=== PATIENT | male | born 1955 | race Caucasian/White ===

== ENCOUNTER 2021-10-07 07:57 | Outpatient (CLI) | payer OTHER, SELFPAY ==
--- NOTE | 2021-10-07 08:45 | FL_ITS ---
WS: [id number] ESOPHAGRAM TECHNIQUE: Double contrast examination was performed with thin and thick barium. Upright and HERNANDEZ imag es were obtained. CLINICAL INFORMATION: R13.10 - Dysphagia, unspecified COMPARISON: None. FINDINGS: Swallowing: Normal oropharyngeal phase. No evidence of aspiration/penetration. Incidental lateral pha ryngeal pouches. Esophagus: Mild to moderate esophageal dysmotility with tertiary contractions. Somewhat delayed empty ing on the upright and supine imaging. Small esophageal hiatal hernia. Gastroesophageal reflux: Moderate reflux to the upper thoracic esophagus. Briefly delayed transit of the barium tablet in the midesophagus which cleared with additional liquid Fluoroscopy time: 3min [id number] # of spot films: 13 FL/FL barium swallow 82806 IMPRESSION: 1. No evidence of high-grade stricture or obstructing mass. 2. Mild/moderate esophageal dysmotility with tertiary contractions and somewha t delayed emptying. 3. Small esophageal hiatal hernia. 4. Moderate active reflux to the upper thoracic esophagus
== END 2021-10-07 07:58 | disposition home or self-care (01) ==
LOC: RAD 07:58
PROVIDERS: Visit Provider Surgery
DX: R13.10 Dysphagia, unspecified (principal); K44.9 Diaphragmatic hernia without obstruction or gangrene; K21.9 Gastro-esophageal reflux disease without esophagitis
CPT/HCPCS: 74220

== ENCOUNTER → 2021-10-15 14:56 | Outpatient (BNVA) | payer OTHER, SELFPAY | PROVIDERS: PCP Family Medicine; Referring Provider Family Medicine; Visit Provider Orthopaedic Surgery | DX: S89.92XA Unspecified injury of left lower leg, initial encounter (principal); W19.XXXA Unspecified fall, initial encounter; Y92.512 Supermarket, store or market as the place of occurrence of the external cause; M25.562 Pain in left knee; F17.210 Nicotine dependence, cigarettes, uncomplicated | CPT/HCPCS: 73560; 73565; 99203 ==

== ENCOUNTER 2021-10-24 10:33 | Day surgery (SDC) | payer OTHER, SELFPAY ==
[2021-10-23 09:54] VITALS: BMI 29.0
[2021-10-24] VITALS (8 sets, daily range): BP systolic 142–159; BP diastolic 75–107; PULSE 55–78; RESP 14–22; TEMP 36.4–36.6; O2SAT 92–100; BMI 29.0
[2021-10-24] MEDS: sodium chloride 0.9% 1,000 ML 30 ML IV (11:13)
--- NOTE | 2021-10-24 11:44 | ANES.PREANE2 ---
Pre-Anesthetic Assessment Height/Weight: Height 1.68 m Weight 81.647 kg Temp Pulse BP Pulse Ox 97.7 F 66 159/107 96 10/24/21 10:43 10/24/21 10:43 10/24/21 10:43 10/24/21 10:43 Preop Diagnosis: Right medial meniscal tear Operation Date: 10/24/21 12:50 Proposed Procedures p right knee arthroscopy 07776/medial meniscus tear right knee S83.249A(Right) - Malachi Walsh MD Familial anesthetic complications: Has woke agitated in the past Was Beta Ness taken within 24 hours: N/A Was Clonidine taken within 24 hours: N/A Last intake: Intake Last Liquid Date 10/23/21 Last Liquid Time 22:30 Last Solid Date 10/23/21 Last Solid Time 22:30 Social Tobacco and No alcohol Exam alert, oriented x 3, clear to auscultation bilaterally and regular rate & rhythm Airway Submandibular: within normal limits Cervical ROM: within normal limits Mallampati: Class III Dentition: chipped History/ROS No significant complaints Pulmonary Chronic Obstructive Pulmonary Disease CV/HEM None reported METS = 4 None reported Hepatic None reported GI None reported Had GERD in the past, no longer has symptoms Metabolic None reported Musc/skel Osteoarthritis/DJD Neuropsych None reported Anesthetic Plan ASA status: 3 (66 year old male smoker with COPD and reduced functional capacity) Anesthesia: Anesthesia Evaluation and General Other: We discussed risk and benefits of general anesthesia including PONV, sore throat (sometimes severe), corneal abrasion, positioning and peripheral nerve injuries, life threatening allergic reaction, post operative ICU admission requiring prolonged intubation, stroke, heart attack, , and rare incidences of recall. Patient consents to proceed with general anesthesia. Risk of > 500 ml blood loss (7ml/kg in children): No Medications/Allergies Home Medications Medication Instructions Recorded Confirmed Last Taken Type ropinirole 3 mg tablet 3 mg PO PRN PRN 07/29/21 10/23/21 10/23/21 History trazodone 50 mg tablet 25 mg PO DAILY 07/29/21 10/23/21 10/23/21 History albuterol 90 mcg/actuation aerosol 90 mcg INHALATION PRN PRN 10/23/21 10/23/21 10/23/21 History inhaler Allergies Allergy/AdvReac Type Severity Reaction Status Date / Time No Known Allergies Allergy Verified 10/15/21 15:02 Current Medications Generic Name Dose Route Start Last Admin Trade Name Rikki PRN Reason Stop Dose Admin Sodium Chloride 1,000 mls @ 30 mls/hr 10/24/21 10:45 10/24/21 11:13 Sodium Chloride 0.9% IV 10/25/21 10:44 30 mls/hr .Q24H BECKIE Administration PFSH Anesthesia Family History Other Cancer Denies family history of Diabetes CAD (coronary artery disease) Dementia Chronic kidney disease (CKD) Stroke Social History Smoking and tobacco status: current every day smoker Alcohol intake: current Alcohol intake frequency: 3 or more drinks per day Lives independently: Yes Household members: spouse Data Anesthesia Cardiac Studies: No Data to Display
--- NOTE | 2021-10-24 12:22 | W.PM.OPSUD ---
Surgery/Procedure H&P Update DATE OF PROCEDURE: October 24, 2021 DATE H&P PERFORMED: 10/15/21 PREOP DIAGNOSIS: Right medial meniscal tear PLANNED PROCEDURE: Operation Date: 10/24/21 12:50 Proposed Procedures p right knee arthroscopy 06516/medial meniscus tear right knee S83.249A(Right) - Malachi Walsh MD
[2021-10-24] MEDS: morphine 4 mg/mL SDV 1 mL 8 MG XX (13:09)
--- NOTE | 2021-10-24 13:26 | PM.OP ---
Operative Report Date of procedure: October 24, 2021 Pre-op diagnosis: Preop Diagnosis Left medial meniscal tear Post-op diagnosis: Same Procedure done: Arthroscopic left partial medial meniscectomy Pathology: none sent Surgeon: Malachi Walsh Estimated blood loss (mL): 5 Complications: None Findings: The patient had a complex tear involving the central 70% of his posterior third of the medial meniscus Condition: stable Disposition: PACU Procedure: The patient was taken to the operating room and given a general anesthesia. He was prepped and draped in the supine position with a tourniquet on the left thigh. The tourniquet was never inflated. The knee was infiltrated with 30 cc of of Marcaine and 8 mg of morphine. A timeout was performed. The knee was entered through standard inferior medial and inferolateral portals. The diagnostic portion of arthroscopy was performed. The complex tearing of the medial meniscus was identified. Utilizing an incisor shaver and Calix and Nephew Werewolf probe unstable flaps of meniscus were removed bring this back to a stable rim of approximately 30% of the medial meniscus remaining. No significant chondromalacia was identified over the medial femoral condyle or tibia. The lateral compartment was inspected and found to be chondral abnormalities meniscal tearing with healthy chondral surfaces. The patellofemoral compartment was inspected and found to be healthy and free of chondral abnormalities. The knee was irrigated with saline. Portals were closed with 3-0 Prolene. Sterile dressings were applied. The patient was extubated and taken to recovery in stable condition.
[2021-10-24] MEDS: fentaNYL 50 mcg/mL INJ 2mL IVP (13:40)
--- NOTE | 2021-10-24 13:46 | SUR.PHASEI ---
1326 PT TO PACU 5 PT AWAKE ALERT COUGHING NON STOP, HOB AT 40 DEGREES PT WITH STRONG RESP EFFORT, IV TO LT AC #20 WITH NS AT KVO RATE PER GRAVITY 200ML UP. LT KNEE DRESSING D/I DISTAL FOOT PINK WARM WITH STRONG REGULAR PULSE NOTED AT +3, REGULAR ICE PACK TO KNEE, PT ID BRACELET TO LRT WRIST , PT ID'D WITH 2 IDENTIFIERS, MONITOR SR TO SB.
[2021-10-24] MEDS: HYDROcodone-acetaminophen 5-325 mg Tablet 1 TAB PO (14:34)
--- NOTE | 2021-10-24 14:46 | ANE.PACU2 ---
Inpatient post-anesthesia follow up: Airway intact: Yes Vital signs: Temperature 97.8 F Pulse Rate 55 Respiratory Rate 17 Blood Pressure 152/83 Pulse Oximetry 92 Oxygen Delivery Me thod Room Air Oxygen Flow Rate 8 Fraction of Inspir ed Oxygen Hydration adequate: Yes Nausea and vomiting: No Pain level: 4 Mental status: Baseline
== END 2021-10-24 15:00 | disposition home or self-care (01) ==
PROVIDERS: PCP Family Medicine; Visit Provider Orthopaedic Surgery
PROC: (CPT 29870; principal; 2021-10-24 12:50)
DX: S83.242A Other tear of medial meniscus, current injury, left knee, initial encounter (principal); X50.1XXA Overexertion from prolonged static or awkward postures, initial encounter; J44.9 Chronic obstructive pulmonary disease, unspecified; F17.210 Nicotine dependence, cigarettes, uncomplicated
CPT/HCPCS: 29881; J0330; J0690; J2270; J2405; J2704; J2710; J3010; J3490; J7030

== ENCOUNTER 2021-11-14 06:42 | Day surgery (SDC) | payer OTHER, SELFPAY ==
[2021-11-11 12:47] VITALS: BMI 29.0
[2021-11-14 07:02] VITALS: BP 130/80; PULSE 52; RESP 18; TEMP 36.1; O2SAT 98
[2021-11-14] MEDS: sodium chloride 0.9% 1,000 ML 30 ML IV (07:16)
--- NOTE | 2021-11-14 07:23 | P.ANESUD_ITS ---
Pre-Anesthetic Update Pre-Anesthetic Assessment: Date of Surgery/Procedure: 11/14/21 Preop Chandni gnosis: Dysphagia Proposed Procedure: Operation Date: 11/14/21 08:30 Proposed Procedures p EGD Dilation w/baloon 30204/R13.1 dysphagia(Not Applicable) - Aston Roper MD Changes from Pre-Anesthetic Assessment: no changes per patient Last Intake: Intake Last Liquid Date 11/13/21 Last Liquid Time 20:30 Last Solid Date 11/13/21 Last Solid Time 20:30 Vitals: Temperature 97 F L 11/14/21 07:02 Temperature Source Temporal Artery S can 11/14/21 07:02 Pulse Rate 52 L 11/14/21 07:02 Respiratory Rate 18 11/14/21 07:02 Blood Pressure 130/80 11/14/21 07:02 Blood Pressure Corrie n 96 11/14/21 07:02 Pulse Oximetry 98 11/14/21 07:02 Oxygen Delivery Me thod 11/14/21 07:02 Other Pertinent Information: Other Pertinent Information: ASA 3 planned for MAC Cardiac Studies: No Data to Display
--- NOTE | 2021-11-14 07:29 | W.PM.OPSFHP ---
Same Day Surgery H&P Indication for Procedure/HPI DATE OF PROCEDURE: November 14, 2021 CHIEF COMPLAINT/INDICATIONFOR SURGICAL PROCEDURE: Difficulty in swallowing PREOP DIAGNOSIS: Dysphagia PLANNED PROCEDURE: Operation Date: 11/14/21 08:30 Proposed Procedures p EGD Dilation w/fly 46707/R13.1 dysphagia(Not Applicable) - Aston Roper MD 07/29/2021 This is a pleasant 65 years old gentleman comes with history of recurrent episodes of choking and difficulty in swallowing.? Patient reports that he has esophageal stretch before in [facility] about 4 to 5 months ago and he had dilation before about 4 times.? And patient reports that his difficulty in swallowing for anything .? Unfortunately there is no available procedure note for the previous dilation.? And no evidence of previous swallow studies.? No evidence of weight loss.? No hematemesis or hemoptysis. As a side note patient reports that he had history of complicated diverticulitis ended up by Trejo's procedure and a colostomy then it was reversed later on via a laparotomy.? Many years ago. Current symptoms: Denies odynophagia 11/14/2021 Patient comes today for diagnostic EGD with possible balloon dilation. Barium swallow was done 10/08/2021 and showed ? 1.? No evidence of high-grade stricture or obstructing mass. 2.? Mild/moderate esophageal dysmotility with tertiary contractions and somewhat delayed emptying. 3.? Small esophageal hiatal hernia. 4.? Moderate active reflux to the upper thoracic esophagus ? ROS All systems have been reviewed negative except as for the above or per problem list. Medications/Allergies* Home Medications Medication Instructions Recorded Confirmed Type ropinirole 3 mg tablet 3 mg PO DAILY 07/29/21 11/14/21 History trazodone 50 mg tablet 25 mg PO DAILY 07/29/21 11/11/21 History albuterol 90 mcg/actuation aerosol 90 mcg INHALATION PRN PRN 10/23/21 11/11/21 History inhaler hydrocodone 5 mg-acetaminophen 325 1 tab PO Q4H PRN 11/14/21 11/14/21 History mg tablet Allergies/Adverse Reactions Allergy/AdvReac Type Severity Reaction Status Date / Time No Known Allergies Allergy Verified 11/11/21 12:46 Current Medications: Generic Name Dose Route Start Last Admin Trade Name Freq PRN Reason Stop Dose Admin Sodium Chloride 1,000 mls @ 30 mls/hr 11/14/21 07:00 11/14/21 07:16 Sodium Chloride 0.9% IV 11/15/21 06:59 30 mls/hr .Q24H BECKIE Administration Pertinent History/Comorbid Conditions* Family History (Updated 07/29/21 @ 11:22 by Chasity Cid) Cancer Denies family history of Diabetes CAD (coronary artery disease) Dementia Chronic kidney disease (CKD) Stroke Social History Smoking and tobacco status: current every day smoker Alcohol intake: current Alcohol intake frequency: 3 or more drinks per day Lives independently: Yes Household members: spouse Pertinent Exam Findings alert, oriented x 3, regular rate & rhythm and procedure specific exam findings (Abdominal examination nontender nondistended soft) Recommendations Surgery/Procedure today (EGD with possible biopsy and possible ballon dilation ) Coding Level of Care Code Acute Customer Service Manager for [facility]
[2021-11-14 08:25] VITALS: BP 103/55; PULSE 56; RESP 16; TEMP 36.4; O2SAT 93
[2021-11-14 08:50] VITALS: BP 131/79; PULSE 53; RESP 18; O2SAT 95
--- NOTE | 2021-11-14 13:42 | ANE.PACU2 ---
Inpatient post-anesthesia follow up: Airway intact: Yes Vital signs: Temperature 97.5 F Pulse Rate 53 Respiratory Rate 18 Blood Pressure 131/79 Pulse Oximetry 95 Oxygen Delivery Me thod Room Air Oxygen Flow Rate Fraction of Inspir ed Oxygen Hydration adequate: Yes Nausea and vomiting: No Pain level: 1 Mental status: Baseline
== END 2021-11-14 09:02 | disposition home or self-care (01) ==
PROVIDERS: PCP Family Medicine; Visit Provider Surgery
DX: R13.10 Dysphagia, unspecified (principal); F17.210 Nicotine dependence, cigarettes, uncomplicated; K31.7 Polyp of stomach and duodenum; K44.9 Diaphragmatic hernia without obstruction or gangrene; K29.70 Gastritis, unspecified, without bleeding
CPT/HCPCS: 43239; 88305; J2704; J7030

== ENCOUNTER 2023-10-19 16:58 | Emergency (ER) | payer OTHER, SELFPAY ==
[2023-10-19 17:02] VITALS: BP 127/80; PULSE 64; RESP 17; TEMP 37; O2SAT 97; BMI 27.9
--- NOTE | 2023-10-19 17:07 | ECG_ITS ---
[facility] Test Date: 2023-10-19 Pat Name: Krish Patel Department: Room: Gender: Male Accounts Payable Representative: : 1955 Requested By: Therese Dowell Order Number: [id number] Petra MD: Shannon Teague M.D. Measurements Intervals [place] Rate: 54 P: 45 NE: 252 QRS: -61 QRSD: 134 T: 24 QT: 448 QTc: 428 Interpretive Statements SINUS BRADYCARDIA WITH FIRST DEGREE AV BLOCK RIGHT BUNDLE BRANCH BLOCK [120+ ms QRS DURATION, UPRIGHT V1, 40+ ms S IN I/aVL/V4/V5/V6] LEFT ANTERIOR FASCICULAR BLOCK [QRS AXIS <= -45, QR IN I, RS IN II] VOLTAGE CRITERIA FOR LVH [MEETS CRITERIA IN ONE OF: R(aVL), S(V1), R(V5), R(V5/V6)+S(V1)] POSSIBLE SEPTAL MYOCARDIAL INFARCTION , OF INDETERMINATE AGE [30 ms Q WAVE IN V1/V2] No previous ECG available for comparison Electronically Signed On 10-20-2023 21:38:37 CDT by Shannon Teague M.D. [email or web address]
--- NOTE | 2023-10-19 17:09 | XRR_ITS ---
PROCEDURE INFORMATION: Exam: XR Chest Exam date and time: 10/19/2023 5:16 PM Age: 68 years old Clinical indication: Pain; Chest pressure; Additional info: Chest pain TECHNIQUE: Imaging protocol: Radiologic exam of the chest. Views: 1 view. COMPARISON: ES surgery / GI images 10/24/2021 12:56 PM FINDINGS: Lungs: Unremarkable. No consolidation. Pleural spaces: Unremarkable. No pleural effusion. No pneumothorax. Heart/Mediastinum: Unremarkable. No cardiomegaly. Bones/joints: Unremarkable. XR/XR chest 1V portable [id number] IMPRESSION: No acute cardiopulmonary findings.
--- NOTE | 2023-10-19 17:10 | W.ED.CHESTPA ---
HPI - Chest Pain General: Chief Complaint: Chest Pain Stated Complaint: Chest Pain Time Seen by Provider: 10/19/23 17:05 History of Present Illness: 68-year-old man with a history of chronic medical marijuana use, COPD, chronic pain syndrome, history of stroke with no residual effects who presents to the emergency room by ambulance with 2 days of right chest pain and pain going down to his right arm and right jaw. He describes a tightness in his chest. He says he has not had any coronary artery disease. It appears his only blood thinner is a baby aspirin daily. He has had a mild worsening cough. Perhaps some mild worsening of shortness of breath.of no altered mental status. No focal motor deficits. No abdominal pain. No nausea or vomiting. Review of Systems Narrative: Constitutional symptoms: Negative except as documented in HPI. Skin symptoms: Negative except as documented in HPI. Eye symptoms: Negative except as documented in HPI. ENMT symptoms: Negative except as documented in HPI. Respiratory symptoms: Negative except as documented in HPI. Cardiovascular symptoms: Negative except as documented in HPI. Gastrointestinal symptoms: Negative except as documented in HPI. Genitourinary symptoms: Negative except as documented in HPI. Musculoskeletal symptoms: Negative except as documented in HPI. Neurologic symptoms: Negative except as documented in HPI. Psychiatric symptoms: Negative except as documented in HPI. Endocrine symptoms: Negative except as documented in HPI. PFSH ED PFSH: Family History Other Cancer Denies family history of Diabetes CAD (coronary artery disease) Dementia Chronic kidney disease (CKD) Stroke Social History Smoking and tobacco/nicotine status: current every day tobacco/nicotine user Alcohol intake: current Alcohol intake frequency: 3 or more drinks per day Substance/Drug Use: current Substance/Drug use frequency: daily Lives independently: Yes Household members: spouse Physical Exam Narrative: EXAM NARRATIVE: General: Alert, no acute distress. Skin: Warm, dry. Head: Normocephalic, atraumatic. Neck: Supple, trachea midline. Eye: Extraocular movements are intact. Ears, nose, mouth and throat: mucosa moist. Cardiovascular: Regular, Normal peripheral perfusion. Respiratory: Lungs are clear to auscultation, respirations are non-labored, breath sounds are equal, Symmetrical chest wall expansion. Gastrointestinal: Soft, Nontender, Non distended, Normal bowel sounds. Musculoskeletal: Normal ROM, no deformity. Neurological: Alert and oriented, No focal neurological deficit observed. Psychiatric: Cooperative, appropriate mood & affect. Course Vital Signs: Vital signs: Vital Signs Temperature 98.6 F 10/19/23 17:02 Pulse Rate 69 10/19/23 18:19 Respiratory Rate 17 10/19/23 17:02 Blood Pressure 126/68 10/19/23 18:19 Pulse Oximetry 96 10/19/23 18:19 Oxygen Delivery Me thod Room Air 10/19/23 18:19 MDM - Chest Pain Medical Decision Making Differential diagnosis for patient with chest pain includes but is not limited to and based on the above HPI, review of systems and physical exam: Pneumonia. unstable angina. angina. Acute coronary syndrome / NV. Pulmonary embolism. Costochondritis / musculoskeletal. Pleurisy. Pericarditis. Esophageal spasm. Pancreatis. Cholecystitis. Workup: Lab work, chest X-ray and EKG ordered to evaluate, rule in and rule out above pathologies. Lab work is unremarkable. No leukocytosis. No anemia. BUN and creatinine are 22 and 0.9. Troponin is negative. Symptoms have been present for couple of days I do not feel a delta is necessary. Plus his pain is on the right side not typical for cardiac. Lab Review: Laboratory results were reviewed and interpreted by myself the emergency room physician. EKG: Sinus bradycardia, Q waves in V1 and V2. Right bundle branch block. Left anterior fascicular block. This was reviewed and interpreted by myself the ER physician. No previous EKG for comparison Chest x-ray: No acute process. No infiltrate. No pneumothorax. No cardiomegaly. This was reviewed and interpreted by myself the ER physician. I reviewed the patient's medical record. Reexamination: Patient is in no distress. No increased work of breathing. No altered mental status. No focal motor deficits. Lab Data 10/19/23 17:16 10/19/23 17:16 Radiology Impressions Chest X-Ray 10/19/23 17:09 IMPRESSION: No acute cardiopulmonary findings. Laboratory Results WBC 10.20 10^3/uL (3.29-11.43) 10/19/23 17:16 RBC 4.52 10^6/uL (3.85-5.65) 10/19/23 17:16 Hgb 13.50 g/dL (11.27-16.99) 10/19/23 17:16 Hct 42.4 % (37-53) 10/19/23 17:16 MCV 93.8 fl (82-101) 10/19/23 17:16 MCH 29.9 pg (27-33) 10/19/23 17:16 MCHC 31.8 g/dL (30-55) 10/19/23 17:16 RDW 14.4 % (12.1-15.1) 10/19/23 17:16 Plt Count 174 10^3/cmm (157-399) 10/19/23 17:16 MPV 9.8 fL (7.4-10.4) 10/19/23 17:16 Neut % (Auto) 62.9 % 10/19/23 17:16 Lymph % (Auto) 26.9 % 10/19/23 17:16 [place] % (Auto) 6.1 % 10/19/23 17:16 Eos % (Auto) 3.4 % 10/19/23 17:16 Baso % (Auto) 0.4 % 10/19/23 17:16 Neut # (Auto) 6.42 10^3/uL (1.8-7.7) 10/19/23 17:16 Lymph # (Auto) 2.7 10^3/uL (0.8-4.8) 10/19/23 17:16 [place] # (Auto) 0.6 10^3/uL (0.2-0.9) 10/19/23 17:16 Eos # (Auto) 0.4 10^3/uL (0.0-0.8) 10/19/23 17:16 Baso # (Auto) 0.0 10^3/uL (0.0-0.1) 10/19/23 17:16 Nucleated RBC % (auto) 0 % 10/19/23 17:16 Nucleated RBCs # 0.0 /100WBC 10/19/23 17:16 Sodium 140 mmol/L (136-145) 10/19/23 17:16 Potassium 4.5 mmol/L (3.5-5.1) 10/19/23 17:16 Chloride 105 mmol/L (98-107) 10/19/23 17:16 Carbon Dioxide 29 mmol/L (22-29) 10/19/23 17:16 Anion Gap 10.5 (5-19) 10/19/23 17:16 BUN 22 mg/dL (8-23) 10/19/23 17:16 Creatinine 0.9 mg/dL (0.7-1.2) 10/19/23 17:16 GFR Calculation 83.9 mL/min (90-130) L 10/19/23 17:16 Glucose 88 mg/dL (65-115) 10/19/23 17:16 Calculated Osmolality 293 mOsm/kg (285-295) 10/19/23 17:16 Calcium 9.1 mg/dL (8.5-10.5) 10/19/23 17:16 Total Bilirubin 0.3 mg/dL (0.15-1.2) 10/19/23 17:16 AST 17 U/L (0-40) 10/19/23 17:16 ALT 23 U/L (0-41) 10/19/23 17:16 Alkaline Phosphatase 71 U/L (40-130) 10/19/23 17:16 Troponin T Baseline 8 ng/L (0-15) 10/19/23 17:16 C-Reactive Protein 3.8 mg/L (0.0-4.9) 10/19/23 17:16 Total Protein 6.0 g/dL (6.6-8.7) L 10/19/23 17:16 Albumin 4.2 g/dL (3.5-5.2) 10/19/23 17:16 Globulin 1.8 g/dL (1.3-4.6) 10/19/23 17:16 Influenza Type A Ag negative (Negative) 10/19/23 17:22 Influenza Type B Ag negative (Negative) 10/19/23 17:22 SARS-CoV-2 Ag (Rapid) negative (Negative) 10/19/23 17:22 All radiology interpretation(s) finalized by discharge Other Data Assessment and plan: Noncardiac chest pain -IV Decadron in the emergency room. This seems to be almost a radicular a pleuritic type pain - Discharged home - Discussed findings and plan with patient. Answered any questions. - All laboratory values were reviewed and interpreted personally by myself, the ER physician - All imaging was reviewed and interpreted personally by myself, the ER physician. - Evaluation and treatment of this problem were appropriate in the emergency setting Discharge Plan Discharge Patient Disposition: Home Clinical Impression: Atypical chest pain Condition: Stable Prescriptions: New dexamethasone 6 mg tablet 6 mg PO DAILY 5 Days Qty: 5 0RF No Action ropinirole 3 mg tablet 3 mg PO DAILY trazodone 50 mg tablet 25 mg PO DAILY hydrocodone-acetaminophen 5-325 mg tablet 1 tab PO Q4H PRN (Reason: Pain) Protonix 40 mg tablet,delayed release (DR/EC) 40 mg PO DAILY 30 Days Qty: 30 3RF albuterol 90 mcg/actuation Aerosol 90 mcg INHALATION PRN PRN (Reason: Wheezing) Discharge Orders: Discharge ED (Routine); Ordered 10/19/23 Ordered By: Therese Gore Referrals: Ruma Arozla MD [Referring] - (You have been screened and evaluated and felt safe for discharge. Health conditions do change or evolve sometimes and as such it is important that you follow up with your Primary Doctor to be re checked, 3-5 days is a general good time frame for follow up. You are always welcome to return to the ED for re assessment if your symptoms are worsening or you have new concerns) Patient Instructions: Noncardiac Chest Pain (ED), Opioid Safety, Pain Management Coding Level of Care Code ED Operations Director for Elsie Fields
[2023-10-19 17:24] LABS: Basophils % 0.4 %; Eosinophils # 0.4 10^3/uL (0.0-0.8); Eosinophils % 3.4 %; Hematocrit 42.4 % (37-53); Lymphocytes # 2.7 10^3/uL (0.8-4.8); Lymphocytes % 26.9 %; Mean Corpuscular HGB Conc 31.8 g/dL (30-55); Mean Corpuscular Hemoglobin 29.9 pg (27-33); Mean Corpuscular Volume 93.8 fl (82-101); Mean Platelet Volume 9.8 fL (7.4-10.4); Monocytes # 0.6 10^3/uL (0.2-0.9); Monocytes % 6.1 %; Neutrophils # 6.42 10^3/uL (1.8-7.7); Neutrophils % 62.9 %; Nucleated Red Blood Cells % 0 %; Platelet Count 174 10^3/cmm (157-399); Red Blood Count 4.52 10^6/uL (3.85-5.65); Red Cell Distribution Width 14.4 % (12.1-15.1)
[2023-10-19 17:26] VITALS: BP 127/80; PULSE 60; O2SAT 95
[2023-10-19 17:48] LABS: Troponin(5th) Baseline 8 ng/L (0-15)
[2023-10-19 17:51] LABS: Alanine Aminotransferase 23 U/L (0-41); Albumin Level 4.2 g/dL (3.5-5.2); Alkaline Phosphatase 71 U/L (40-130); Anion Gap 10.5 (5-19); Aspartate Amino Transferase 17 U/L (0-40); Blood Urea Nitrogen 22 mg/dL (8-23); C Reactive Protein 3.8 mg/L (0.0-4.9); Calcium 9.1 mg/dL (8.5-10.5); Carbon Dioxide 29 mmol/L (22-29); Chloride 105 mmol/L (98-107); Creatinine Clr Calc Pharmacy 77.4093; Globulin 1.8 g/dL (1.3-4.6); Glomerular Filtration Rate 83.9 mL/min (90-130); Glucose 88 mg/dL (65-115); Osmolality Calculated 293 mOsm/kg (285-295); Potassium 4.5 mmol/L (3.5-5.1); Sodium 140 mmol/L (136-145); Total Bilirubin 0.3 mg/dL (0.15-1.2)
[2023-10-19 18:18] LABS: Influenza A by IFA negative (Negative); Influenza B by IFA negative (Negative); SARS Covid-2 Antigen negative (Negative)
[2023-10-19 18:19] VITALS: BP 126/68; PULSE 69; O2SAT 96
[2023-10-19] MEDS: dexamethasone 10 mg/mL INJ IVP (18:50)
[2023-10-19 18:56] VITALS: BP 153/97; PULSE 81; O2SAT 97
== END 2023-10-19 18:57 | disposition home or self-care (01) ==
PROVIDERS: Emergency Provider Emergency Medicine; PCP Family Medicine
DX: R07.89 Other chest pain (principal); Z11.52 Encounter for screening for COVID-19; Z72.0 Tobacco use
CPT/HCPCS: 71045; 80053; 84484; 85025; 86140; 87426; 87804; 93005; 96374; 99285; J1100